=== PATIENT | female | born 1930 | race Caucasian/White ===

== ENCOUNTER 2016-04-28 05:06 | Emergency (ER) | payer MEDICARE, BC ==
[2016-04-28 05:18] VITALS: TEMP 97.8; BMI 28.3
[2016-04-28] MEDS ORDERED: MECLIZINE 25 MG TAB PO ONE (05:31)
[2016-04-28 05:49] LABS: AUTOMATED BASOPHIL 0.9 % (0-2); AUTOMATED EOSINOPHIL 1.6 % (0-5); AUTOMATED LYMPH 16.4 % (17-44); AUTOMATED NEUTROPHIL 73.1 % (45-76); MPV 8.9 fL (7.4-10.4)
[2016-04-28 05:59] LABS: BLOOD UREA NITROGEN 21 MG/DL (7-17); CALCULATED OSMOLALITY 273 MOs/Kg (270-290); CHLORIDE 106 mEq/L (98-107); GLUCOSE 110 MG/DL (70-99); SODIUM LEVEL 140 mEq/L (137-146)
[2016-04-28 06:01] LABS: PARTIAL THROMB. TIME 24.8 SEC (22-35)
--- NOTE | 2016-04-28 06:16 | EDPRACDOC ---
- General Information Chief Complaint: Neuro Symptoms/Deficits Stated Complaint: DIZZINESS Time Seen by Provider: 04/28/16 05:08 Information Source: Patient Home Medications: Home Medications Carvedilol 6.25 mg PO BID 07/25/14 Ubidecarenone [Co Q-10] 100 mg PO DAILY 07/25/14 Vit C/E/Zn/Coppr/Lutein/Zeaxan [Ocuvite Lutein Capsule] 1 each PO DAILY Aspirin [Aspirin EC] 325 mg PO DAILY 08/06/14 CYANOCOBALAMIN (Vitamin B-12) [Vitamin B-12] 1,000 mcg IM .MONTHLY 08/06/14 Cholecalciferol (Vitamin D3) [Vitamin D3] 1,000 unit PO DAILY 06/16/15 Furosemide [Lasix] 20 mg PO Q48H 06/16/15 Losartan Potassium 100 mg PO DAILY 06/16/15 Nitrofurantoin [Macrobid] 100 mg PO BID #20 cap 06/16/15 Rosuvastatin Calcium [Crestor] 10 mg PO DAILY 06/16/15 Meclizine HCl [Antivert] 25 mg PO TID PRN #20 tab 04/28/16 Allergies/Adverse Reactions: Allergies Allergy/AdvReac Type Severity Reaction Status Date / Time Penicillins Allergy Mild Rash-Genera Verified 06/16/15 10:40 lized prednisone Allergy Mild Anxiety Verified 06/16/15 10:40 - History of Present Illness Onset: 11PM Exact Onset of Symptoms: Upon Awakening HPI: PT PRESENTS WITH DIZZINESS THAT BEGAN WHILE ASLEEP. REPORTS WORSE WITH MOTION BUT IMPROVES WITH LYING STILL. REPORTS SHE HAD RINGING IN HER EARS A FEW DAYS AGO. Symptoms Started: Reports: At Rest, While asleep Symptoms: Reports: Vertigo Associated signs and symptoms:: Denies: GI Bleed, Diarrhea, Headache, Nausea, Vomiting ED Past Medical History - History Reviewed Yes Nurses notes reviewed and agree except as marked - Patient Medical History Neurological History: Denies: Cerebrovascular Accident, Seizures, Migraine, Dementia Cardiac History: Reports: Hypertension, Congestive Heart Failure, Hypercholesterolemia, Cardiomyopathy, Valvular Heart Disease GI/ History: Reports: Gastroesophageal Reflux Musculoskeletal History: Reports: Arthritis, Osteoarthritis Psychological History: Reports: Anxiety. Denies: Depression Systemic History: Reports: Cancer (BILAT BREAST (REMISSION)), Anemia Surgical History: Reports: Cholecystectomy, Other (Lumpectomy on the right done twice, also lumpectomy on the left knee and gb) - Family Medical History Reports: Diabetes - Social Medical History Smoking Status: Former smoker Lives In: Home EDM Review of Systems - Review of Systems ROS Negative Except as Marked: Yes All systems reviewed and were negative except as marked Gastrointestinal: negative: Nausea, Vomiting Neurological: Dizziness. negative: Headache - Physical Exam Constitutional: Alert Oriented to: Time, Person, Place Last recorded Vital Signs: Last Vital Signs Temp 97.8 F 04/28/16 05:09 Pulse 68 04/28/16 05:09 Resp 18 04/28/16 05:09 BP 216/90 H 04/28/16 05:09 Pulse Ox 94 04/28/16 05:09 Oxygen Pulse Oxygen Saturation 94 O2 Device Room Air Oxygen Flow Rate Fraction of Inspired Oxygen ( FIO2) - HEENT Head: negative: Deformity, Laceration Eye Exam: negative: Conjunctival Injection, Pale Conjunctiva Oropharynx: negative: Membranes Dry Nose: negative: Congestion, Discharge Neck: negative: Limited ROM - Respiratory/Cardiovascular Respiratory: Normal - CTA. negative: Accessory Muscle Use, Diminished, Tachypnea Cardiovascular: negative: Bradycardia, Tachycardia, Irregular - Musculoskeletal Extremities: Radial Pulse (PALPABLE) - Integumentary Skin: Warm, Dry. negative: Rash - Neurologic Memory Impaired: Normal Motor Function: Normal Mood Description: Anxious, Appropriate Thought: Coherent Perception: Normal - Results 04/28/16 05:33 04/28/16 05:33 WBC 7.0 xk/uL (3.8-10.8) 04/28/16 05:33 RBC 4.20 xM/uL (4.20-5.40) 04/28/16 05:33 Hgb 13.6 g/dL (12.0-16.0) 04/28/16 05:33 Hct 41.2 % (36-47) 04/28/16 05:33 MCV 98 fL (81-99) 04/28/16 05:33 MCH 32.4 pg (27-32) H 04/28/16 05:33 MCHC 33.1 g/dl (33-36) 04/28/16 05:33 RDW 13.3 % (11.5-14.5) 04/28/16 05:33 Plt Count 194 xk/uL (130-400) 04/28/16 05:33 MPV 8.9 fL (7.4-10.4) 04/28/16 05:33 Neut % (Auto) 73.1 % (45-76) 04/28/16 05:33 Lymph % (Auto) 16.4 % (17-44) L 04/28/16 05:33 [place] % (Auto) 8.0 % (3-10) 04/28/16 05:33 Eos % (Auto) 1.6 % (0-5) 04/28/16 05:33 Baso % (Auto) 0.9 % (0-2) 04/28/16 05:33 Absolute Neuts (auto) 5.11 xk/uL (1.7-8.2) 04/28/16 05:33 Absolute Lymphs (auto) 1.12 xk/uL (0.65-4.75) 04/28/16 05:33 PT 10.0 SEC (9.2-11.2) 04/28/16 05:33 INR 1.0 04/28/16 05:33 APTT 24.8 SEC (22-35) 04/28/16 05:33 Sodium 140 mEq/L (137-146) 04/28/16 05:33 Potassium 4.6 mEq/L (3.5-5.1) 04/28/16 05:33 Chloride 106 mEq/L (98-107) 04/28/16 05:33 Carbon Dioxide 25 mMOL/L (22-33) 04/28/16 05:33 Anion Gap 14 mEq/L (8-16) 04/28/16 05:33 BUN 21 MG/DL (7-17) H 04/28/16 05:33 Creatinine 1.00 MG/DL (0.52-1.04) 04/28/16 05:33 Estimated GFR (MDRD) 52 mL/min (>=60) L 04/28/16 05:33 Glucose 110 MG/DL (70-99) H 04/28/16 05:33 Calculated Osmolality 273 MOs/Kg (270-290) 04/28/16 05:33 Calcium 9.0 MG/DL (8.4-10.2) 04/28/16 05:33 Total Bilirubin 0.5 MG/DL (0.2-1.3) 04/28/16 05:33 AST 24 IU/L (14-36) 04/28/16 05:33 ALT 27 IU/L (9-52) 04/28/16 05:33 Alkaline Phosphatase 61 IU/L (55-165) 04/28/16 05:33 Troponin I < 0.01 ng/mL (<.04) 04/28/16 05:33 Total Protein 7.0 G/DL (6.3-8.2) 04/28/16 05:33 Albumin 4.0 G/DL (3.5-5.0) 04/28/16 05:33 Lab Results 04/28/16 04/28/16 04/28/16 05:33 05:33 05:33 WBC 7.0 RBC 4.20 Hgb 13.6 Hct 41.2 MCV 98 MCH 32.4 H MCHC 33.1 RDW 13.3 Plt Count 194 MPV 8.9 Neut % (Auto) 73.1 Lymph % (Auto) 16.4 L [place] % (Auto) 8.0 Eos % (Auto) 1.6 Baso % (Auto) 0.9 Absolute Neuts (auto) 5.11 Absolute Lymphs (auto) 1.12 PT 10.0 INR 1.0 APTT 24.8 Sodium 140 Potassium 4.6 Chloride 106 Carbon Dioxide 25 Anion Gap 14 BUN 21 H Creatinine 1.00 Estimated GFR (MDRD) 52 L Glucose 110 H Calculated Osmolality 273 Calcium 9.0 Total Bilirubin 0.5 AST 24 ALT 27 Alkaline Phosphatase 61 Troponin I < 0.01 Total Protein 7.0 Albumin 4.0 - EKG EKG #1 EKG Time: 05:33 -: Yes EKG interpreted by me Rate: bpm: 67 [place]: LAD Rhythm: NSR Block: LBBB ST: Nonsp Decision Time to Discharge: 06:53 - Departure Yes I personally saw and evaluated the patient. Disposition: Home Condition: Improved Final Diagnosis: Vertigo Instructions: Vertigo (ED) Education/Counseling Given To: Patient Education/Counseling Given Regarding: Diagnosis, Treatment, Prognosis, Follow Up Referrals: Quentin Thurston MD [Primary Care Provider] - Call for Appointment Prescriptions: Meclizine HCl [Antivert] 25 mg PO TID PRN #20 tab PRN Reason: Dizziness
--- NOTE | 2016-04-28 06:32 | DIRPT ---
CLINICAL DATA: 86-year-old female with dizziness and vertigo EXAM: CT HEAD WITHOUT CONTRAST TECHNIQUE: Contiguous axial images were obtained from the base of the skull through the vertex without intravenous contrast. COMPARISON: Head CT dated 08/06/2014 FINDINGS: The ventricles are dilated and the sulci are prominent compatible with age-related atrophy. Periventricular and deep white matter hypodensities represent chronic microvascular ischemic changes. There is no intracranial hemorrhage. No mass effect or midline shift identified. The visualized paranasal sinuses and mastoid air cells are well aerated. The calvarium is intact. IMPRESSION: No acute intracranial hemorrhage. Age-related atrophy and chronic microvascular ischemic disease. If symptoms persist and there are no contraindications, MRI may provide better evaluation if clinically indicated. Electronically Signed By: Calvin Whatley M.D. On: 04/28/2016 06:29
[2016-04-28 07:09] VITALS: BP 202/86; PULSE 78
== END 2016-04-28 07:25 | disposition home or self-care (01) ==
LOC: ED 05:06
DX: R42 Dizziness and giddiness (principal)
CPT/HCPCS: 36415; 70450; 80053; 84484; 85025; 85610; 85730; 93005; 99283; A9270; J3490